=== PATIENT | female | born 1945 | race Caucasian/White ===

== ENCOUNTER → 2020-09-20 | Outpatient (CLI) | payer MEDICARE ==
[~2020-09-20] MED LIST: IOPAMIDOL 300MG/ML 100 ML INFUS..BTL IV ONE
[2020-09-20 10:53] LABS: BLOOD UREA NITROGEN 19 mg/dL (7-26); BUN/CREATININE RATIO 24 (6-25); EST GLOMERULAR FILTRATION RATE > 60 ML/MIN (60-)
== END ==
LOC: DX 09:56
PROVIDERS: ATTEND Urology
DX: R31.21 Asymptomatic microscopic hematuria (principal)
CPT/HCPCS: 36415; 74400; 82565; 84520; Q9967